=== PATIENT | female | born 1985 | race Hispanic/Latino ===

== ENCOUNTER 2017-03-08 00:05 | Emergency (ER) | payer SELFPAY ==
[2017-03-08 00:27] LABS: Bilirubin Negative (Negative); Blood, Urine Moderate (Negative); Clarity TURBID (Clear); Glucose, Urine (Dipstick) >=1000 mg/dL (Negative); Leukocyte Negative (Negative); Nitrite Negative (Negative); Protein, Urine (Dipstick) Negative (Neg-Trace); Specific Gravity, Urine 1.036 (1.002-1.036); Urobilinogen 0.2 mg/dL (0.2-1.0)
[2017-03-08 00:30] LABS: Bacteria/HPF Rare-Few HPF (None Seen); Hyaline Casts/LPF 0-3 HYALINE CAST LPF (0-3 Hyaline); Pathc Cast-AUWi Flag 0.27 (0-2.49); RBC/HPF 21-50 HPF (0-3); Squamous Epithelial 0-3 HPF (0-3); WBC/HPF 0-3 HPF (0-3)
[2017-03-08 00:39] LABS: #Eosinphils 0.1 thou/uL (0.0-0.7); #Lymphocytes 2.3 thou/uL (1.20-3.40); #Monocytes 0.5 thou/uL (0.11-0.59); #Neutrophils 7.1 thou/uL (1.40-6.50); %Basophils 0.4 % (0.0-1.0); %Eosinophils 1.1 % (0.0-10.0); %Monocytes 4.7 % (0.0-10.0); %Neutrophils 70.9 % (42.0-75.0); Hemoglobin 14.6 g/dL (12.0-16.0); Mean Corpuscular HGB CONC 33.2 g/dL (32.0-36.0); Mean Corpuscular Hemoglobin 28.3 pg (27.0-31.0); Mean Corpuscular Volume 85.1 fl (81.0-99.0); Platelet Count 142 thou/uL (130-400); RBC Distribution Width 11.9 % (11.5-14.5); Red Blood Cell (RBC) Count 5.18 mill/uL (4.20-5.40)
[2017-03-08 00:46] LABS: Pregnancy Test - Urine (BHCG) Negative (Negative); Pregu Control Background? CLEAR/WHITE (CLR/WHITE); Pregu Control Bar Appear? YES (CONTROL BAR); Specific Gravity 1.036 (1.002-1.036)
[2017-03-08 01:06] LABS: ALT (SGPT) 29 U/L (8-55); AST (SGOT) 20 U/L (5-34); Albumin 4.2 g/dL (3.5-5.0); Alkaline Phosphatase 130 U/L (40-150); Anion Gap 15 mmol/L (10-20); BUN (Urea Nitrogen) 11 mg/dL (7.0-18.7); Bilirubin, Total 0.6 mg/dL (0.2-1.2); Calc. Creatinine Clearance 0 mL/min (70-130); Carbon Dioxide 23 mmol/L (22-29); Chloride 98 mmol/L (98-107); Estimated GFR-MDRD 84; Globulin 3.1 g/dL (2.4-3.5); Glucose 341 mg/dL (70-105); Potassium 3.6 mmol/L (3.5-5.1); Protein, Total 7.3 g/dL (6.0-8.3); Sodium 132 mmol/L (136-145)
[2017-03-08] MEDS ORDERED: Ondansetron HCl/PF 4 MG/2 ML Vial ONE (02:27)
[2017-03-08] MEDS ORDERED: Ketorolac Tromethamine 30 MG/ML VIAL ONE (02:27)
--- NOTE | 2017-03-08 13:57 | CT ---
PRELIMINARY REPORT/[facility]/EMERGENCY AFTER HOURS PROCEDURE: EXAM: CT Abdomen and Pelvis Without Intravenous Contrast EXAM DATE/TIME: Exam ordered 03/08/2017 2:16 AM CLINICAL HISTORY: 31 years old, female; Pain; Abdominal pain; Flank; Left; Prior surgery; Patient HX: 31 yo f presents to ed C/O abdominal pain. Pt reports pain started today in l flank and radiates to abdomen. Denies fe jocelyn. Reports chills and nausea. Denies vomiting, diarrhea, or constipation. Pt states this has never happened before, no h/o kidney stones. Reports h/o tubal. Denies dysuria. Reports hematuria because p t is currently on menstrual cycle, started on . TECHNIQUE: Axial computed tomography images of the abdomen and pelvis without intravenous contrast. Coronal reformatted images were created and reviewed. COMPARISON: No relevant prior studies available. FINDINGS: Lower thorax: No acute findings. ABDOMEN: Liver: Unremarkable. Gallbladder and bile ducts: Unremarkable. No calcified stones. No ductal dilation. Pancreas: Unremarkable. No ductal dilation. Spleen: Unremarkable. No splenomegaly. Adrenals: Unremarkable. No mass. Kidneys and ureters: Unremarkable. No obstructing stones. No hydronephrosis. Stomach and bowel: Unremarkable. No obstruction. No mucosal thickening. Appendix: Normal appendix. PELVIS: Bladder: Unremarkable. No stones. Reproductive: 19 cm intermediate density in the septated cystic ovarian mass lesion which could be ar ising from either of the ovaries, extending into the lower abdomen. ABDOMEN and PELVIS: Intraperitoneal space: Unremarkable. No free air. No significant fluid collection. Bones/joints: No acute fracture. No dislocation. Soft tissues: Unremarkable. Vasculature: Unremarkable. No abdominal aortic aneurysm. Lymph nodes: Unremarkable. No enlarged lymph nodes. IMPRESSION: 19 cm intermediate density in the septated cystic ovarian mass lesion which could be arising from eit her of the ovaries, extending into the lower abdomen. This could be benign or malignant. Recommend gynecology referral. Thank you for allowing us to participate in the care of your patient. Dictated and Authenticated by: Pedro Lam MD 03/08/2017 2:29 AM Central Time ([place] & [place]) FINAL REPORT EMERGENCY AFTER HOURS NONCONTRAST ABDOMEN AND PELVIC CT SCAN: Date: 03/08/17 Time: 0219 hours FINDINGS/IMPRESSION: Approximately 19.0 cm diameter low to intermediate density septated cystic ovarian mass in the midlin e. Normal appearing appendix. No renal calculus or obstruction. IMPRESSION: Large septated ovarian mass suspicious for ovarian neoplasm. Recommend gynecological evaluation. Report in agreement with preliminary report given on-call by [facility]. POS: [facility]
--- NOTE | 2017-03-08 14:01 | ULT ---
PRELIMINARY REPORT/[facility]/EMERGENCY AFTER HOURS PROCEDURE: EXAM: US Pelvis Complete EXAM DATE/TIME: Exam ordered 03/08/2017 3:12 AM CLINICAL HISTORY: 31 years old, female; Pain; Other: Lt flank, llq pain; Patient HX: See [facility] CT report TECHNIQUE: Real-time pelvic ultrasound (complete) with image documentation. COMPARISON: CT Stone Protocol 2017-03-08 02:16 FINDINGS: Uterus/cervix: Unremarkable. Normal endometrial stripe thickness. No myometrial mass. Right ovary: Unremarkable. No mass. Normal blood flow. Left ovary: 16.6 cm cystic left ovarian lesion. There is solid tissue with internal Doppler signal at the inferior aspect of this lesion which may be normal left ovary or potentially malignant solid com ponent of the cystic lesion. Normal blood flow. Free fluid: No free fluid. IMPRESSION: 16.6 cm cystic left ovarian lesion. There is solid tissue with internal Doppler signal at the inferio r aspect of this lesion which may be normal left ovary or potentially malignant solid component of th e cystic lesion. Recommend gynecology referral. Thank you for allowing us to participate in the care of your patient. Dictated and Authenticated by: Pedro Lam MD 03/08/2017 4:19 AM Central Time ([place] & [place]) FINAL REPORT EMERGENCY AFTER HOURS PELVIC ULTRASOUND INCLUDING TRANSABDOMINAL AND VASCULAR DUPLEX WITH COLOR AND S PECTRAL DOPPLER IMAGING: Date: 03/08/17 Time: 0326 hours FINDINGS: There is an approximately 17.0 cm diameter left ovarian complex, mostly cystic mass, with some solid soft tissue with Doppler signal within the inferior aspect of the mass. Unremarkable right ovary. Unr emarkable uterus. IMPRESSION: Complex, mostly cystic mass, probably left ovarian origin with some solid tissue and some debris with in the cystic component of the mass, certainly worrisome for ovarian neoplasm. Gynecological follow-u p is recommended. Report in agreement with preliminary report given on-call by [facility]. POS: [facility]
== END 2017-03-08 04:53 | disposition home or self-care (01) ==
LOC: ERS 00:05
DX: N83.9 Noninflammatory disorder of ovary, fallopian tube and broad ligament, unspecified (principal)
CPT/HCPCS: 36415; 74176; 76856; 80053; 81003; 81015; 81025; 85025; 93976; 96361; 96374; 96375; J1885; J2405

== ENCOUNTER 2018-02-28 00:19 | Emergency (ER) | payer OTHER, SELFPAY ==
--- NOTE | 2018-02-28 08:46 | RAD ---
CHEST 1 VIEW: Date: 02/28/18 HISTORY: Cough. COMPARISON: None. FINDINGS: Lungs are clear. No pneumothorax or effusion. Cardiac silhouette and mediastinal contours within norm al limits. IMPRESSION: No acute intrathoracic abnormality. POS: [facility]
== END 2018-02-28 02:08 | disposition home or self-care (01) ==
LOC: ERS 00:19
DX: J06.9 Acute upper respiratory infection, unspecified (principal)
CPT/HCPCS: 71045; 87804

== ENCOUNTER 2019-05-01 14:41 | Inpatient (IN) | payer OTHER, SELFPAY ==
[~2019-05-01 14:41] MED LIST: Glycopyrrolate 0.2 MG/ML 5 ML SYRINGE ONE; Iopamidol-370 76% 500 ML 1 ML ONE; Lidocaine 1% PF 5 ML VIAL ONE; PROPOFOL 200 MG/20 ML VIAL ONE; Rocuronium Bromide 10 MG/ML (10ML VIAL) ONE; Succinylcholine Chloride 20 MG/ML 10 ml SYRINGE FS ONE
[2019-05-01] MEDS ORDERED: Vancomycin HCl 1.75 GM in Sodium Chloride 0.9% 500 ML IVPB SCH (15:45)
[2019-05-01 16:04] LABS: Hemoglobin 12.7 g/dL (12.0-16.0); Mean Corpuscular HGB CONC 33.3 g/dL (32.0-36.0); Mean Corpuscular Hemoglobin 26.8 pg (27.0-31.0); Mean Corpuscular Volume 80.4 fL (78.0-98.0); Mean Platelet Volume 12.7 fL (7.4-10.4); Platelet Count 127 thou/uL (130-400); RBC Distribution Width 13.6 % (11.5-14.5); Red Blood Cell (RBC) Count 4.73 mill/uL (4.20-5.40); White Blood Cell (WBC) Count 9.9 thou/uL (4.8-10.8)
[2019-05-01] MEDS ORDERED: Cefepime 2 GM VIAL ONE (16:05)
[2019-05-01] MEDS ORDERED: metroNIDAZOLE 500 MG/100 ML BAG ONE (16:07)
[2019-05-01] MEDS ORDERED: Morphine 4 MG/ML VIAL ONE (16:07)
[2019-05-01 16:18] LABS: ALT (SGPT) 9 U/L (8-55); AST (SGOT) 14 U/L (5-34); Albumin 3.3 g/dL (3.5-5.0); Alkaline Phosphatase 123 U/L (40-110); Anion Gap 15 mmol/L (10-20); BUN (Urea Nitrogen) 15 mg/dL (7.0-18.7); Bilirubin, Total 0.6 mg/dL (0.2-1.2); Calc. Creatinine Clearance 0 mL/min (70-130); Carbon Dioxide 23 mmol/L (22-29); Chloride 99 mmol/L (98-107); Estimated GFR-MDRD Greater than 90; Globulin 3.1 g/dL (2.4-3.5); Glucose 343 mg/dL (70-105); Potassium 3.7 mmol/L (3.5-5.1); Protein, Total 6.4 g/dL (6.0-8.3); Sodium 133 mmol/L (136-145)
--- NOTE | 2019-05-01 16:20 | PDOC.HHP ---
Hospitalist HPI - History of Present Illness pain/wound History of Present Illness: 33 yo with DM2 presnted to the ER for worsening genital rash. 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 Patient states this started as a "lump" on Thursday. She visited her PCP and was given an IM antibiotic then sent home with doxycycline and flagyl which she states she has been taking. Despite this the wound and rash worsened, starting to drain pus yesterday. Endorses fevers, chills. No other symptoms. No abd pain. Patient comfortable when we were talking in the room. ED Course: Given cefepime,flagyl and morhpine for pain She was started on Vancomycin Hospitalist ROS - Review of Systems Constitutional: reports: fever, chills Eyes: reports: pain. denies: vision change, eyelid inflammation ENT: denies: nose discharge, nose congestion Respiratory: denies: cough, shortness of breath, hemoptysis, SOB with excertion Cardiovascular: denies: chest pain, palpitations Gastrointestinal: denies: nausea, vomiting, abdominal pain, diarrhea Genitourinary: denies: dysuria, frequency Musculoskeletal: denies: neck pain, shoulder pain, arm pain Skin: reports: rash, lesions Neurological: denies: weakness, numbness, seizures Hospitalist History - Past Medical History Source: patient, family Cardiac: reports: no pertinent history Pulmonary: reports: no pertinent history SHIRT LINE OPERATOR: reports: no pertinent history Gastrointestinal: reports: no pertinent history Heme/Onc: reports: no pertinent history Hepatobiliary: reports: no pertinent history Psych: reports: no pertinent history Endocrine: reports: Diabetes - Past Surgical History Past Surgical History: reports: (x3) - Family History Family History: reports: no pertinent history - Social History Smoking Status: Never smoker Alcohol: reports: None Drugs: reports: none - Exam General Appearance: NAD, awake alert Eye: anicteric sclera. negative: scleral icterus ENT: normocephalic atraumatic, moist mucosa Neck: supple, symmetric, no JVD Heart - other findings: tachycardic Respiratory: normal chest expansion Respiratory - other findings: no acute respiratory distress Gastrointestinal: soft, non-tender Skin - other findings: left labial erythema, swelling, skin discoloration, pus pocket drain Neurological: cranial nerve grossly intact, normal sensation to touch Musculoskeletal: normal tone, normal strength Psychiatric: normal affect, normal behavior, A&O x 3, oriented to person, oriented to place, oriented to time Hospitalist Results - Labs Result Diagrams: 05/01/19 15:31 05/01/19 15:31 Lab results: WBC 9.9 thou/uL (4.8-10.8) 05/01/19 15:31 Hgb 12.7 g/dL (12.0-16.0) 05/01/19 15:31 Hct 38.0 % (36.0-47.0) 05/01/19 15:31 MCV 80.4 fL (78.0-98.0) 05/01/19 15:31 Plt Count 127 thou/uL (130-400) L 05/01/19 15:31 Lactic Acid 2.4 mmol/L (0.5-2.2) H 05/01/19 15:31 Hospitalist H&P A/P - Problem (1) 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 Sepsis 2/2 sunni's gangrene -Tachyardic, fever of 101F, s/p cefepime & flagyl. Will start empiric abx including Vanc/zosyn/Clinda for broad spectrum coverage including MRSA -Discussed proceeding to OR as this is surgical emergency to prevent further spread -Stat CT to assess extent of involvement -Blood cultures pending -Will obtain wound culture 2. DM2 -Will check A1c as this being uncontrolled is possible RF leading to current condition 3. Elevated lactic acid -IV fluids Discussed with Dr. Jordan Hidalgo Addendum - Attending - Attending Attestation Date/Time: 05/01/19 [id number] I personally evaluated the patient and discussed the management with Dr. Hdz. I agree with the History, Examination, Assessment and Plan documented above with any addition or exceptions noted below. Exam with marked edema, erythema encompassing entire left labia with 2 1-cm necrotic appearing lesions. Malodorous. CT shows Sunni's gangrene with enlarged lymph nodes. OR notified of need for stat I&D. Dr. Tee to assist, Dr. Booker on standby for general surgery input. Patient counseled on need for surgery, consents signed. Will proceed to OR for I&D.
[2019-05-01 16:24] LABS: Band 17 % (5-11); Large Platelets SLIGHT; Lymphocytes 8 % (21-51); MDiff Complete? YES; Monocytes 9 % (0-10); Neutrophil 65 % (42-75); Platelet Morphology Comment Appears Decreased; RBC Morphology Normal; Reactive Lymphocytes 1 % (0-10)
[2019-05-01 16:30] LABS: BHCG - Serum Negative (NEGATIVE); Pregs Control Background? CLEAR/WHITE (CLR/WHITE); Pregs Control Bar Appear? YES (CONTROL BAR)
--- NOTE | 2019-05-01 16:31 | CT ---
CT OF THE ABDOMEN AND PELVIS WITH IV CONTRAST INDICATION: Concern for perineal gangrenous infection; burning on urination COMPARISON: Noncontrast CT abdomen pelvis dated March 08, 2017 FINDINGS: ABDOMEN: Lung bases: Clear Liver: No focal lesion. Gallbladder: Normal appearing. Pancreas: Normal. Adrenal glands: Normal. Spleen: Normal. Kidneys and ureters: Stable small right renal cyst measuring 9 mm. No focal renal lesion of the left kidney. Vasculature: Normal. Lymph nodes:No lymphadenopathy. Free fluid in abdomen:No free fluid is evident. PELVIS: Small and large bowel: There is moderate amount retained stool within the colon. Small bowel is of no rmal caliber. Appendix:Normal Bladder: Normal. Rectal and perirectal soft tissues:Normal. Reproductive structures: Previously seen large left adnexal complex cystic lesion is decreased in siz e. There is now a 5 cm complex cystic lesion now in the left adnexa. There is peripherally enhancing cystic abnormality right adnexa measuring 2.9 cm. Free fluid in pelvis: No free fluid is evident. Lymphadenopathy pelvis: There are mildly prominent lymph nodes seen within the left inguinal region. The largest measures 1.5 cm. Osseous structures: No acute osseous abnormality. No destructive osteolytic or osteoblastic lesion i s identified. There is scattered degenerative and osteoarthritic changes. Soft tissues:There is a inflammatory reticulation with soft tissue gas involving the left mid leg be a mature as well as the left gluteal region extending into the left ischial anal fossa and up to the left inguinal external ring. IMPRESSION: 1. 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 There are enlarged lymph nodes of the left inguinal region which are likely reactive. Surgical consultation is recommended. 2. Mildly complex cystic abnormalities of the left and right adnexa. Follow-up pelvic ultrasound be h elpful for further characterization. The left complex cystic abnormality has significantly decreased in size from the comparison examination where previously it measured 16 cm and now measures 5 cm. The peripheral enhancing cystic abnormality of the right adnexa may reflect an involuting follicular cyst. 3. Small right renal cyst
[2019-05-01 16:34] LABS: Hemoglobin A1c 10.9 % (4.0-6.0)
[2019-05-01] MEDS ORDERED: Dextrose 5% in Water 1,000 ML IV PRN (16:38)
[2019-05-01] MEDS ORDERED: Dextrose 50% Abboject 50 ML SYRINGE SLOW IVP PRN (16:38)
--- NOTE | 2019-05-01 17:44 | PDOC.BPN ---
- Brief Progress Note Patient tachycardic in 120s but does not appear uncomfortable, pain medication helping with pain. Called OR to get timeline and was told it would be 1-1.5 hours before they could get us back. I requested a second room given her diagnosis but was told it couldn't be done at this time. Day surgery arrived to take patient down and I gave them my number to call as soon as ready to go to OR.
[2019-05-01] MEDS ORDERED: Fentanyl 100 MCG/2 ML VIAL ONE (18:31)
[2019-05-01] MEDS ORDERED: Midazolam HCl 2 mg/2 ml Vial ONE (18:33)
[2019-05-01] MEDS ORDERED: Promethazine HCl 25 MG/ML VIAL IM PRN (19:59)
[2019-05-01] MEDS ORDERED: Meperidine HCl/PF 25 MG/ML VIAL SLOW IVP PRN (19:59)
[2019-05-01] MEDS ORDERED: Promethazine HCl 25 MG/ML VIAL SLOW IVP PRN (19:59)
[2019-05-01] MEDS ORDERED: HYDROmorphone 2 MG/ML VIAL SLOW IVP PRN (19:59)
[2019-05-01] MEDS ORDERED: Calcium Carbonate 500 MG ChewTAB PO PRN (20:37)
[2019-05-01] MEDS ORDERED: Ondansetron ODT 4 MG TAB PO PRN (20:37)
[2019-05-01] MEDS ORDERED: Ondansetron PF 4 MG/2 ML Vial IVP PRN (20:37)
[2019-05-01] MEDS ORDERED: Bisacodyl 5 MG TAB PO PRN (20:37)
[2019-05-01] MEDS ORDERED: HYDROcodone/Acetaminophen 5/325 mg Tablet PO PRN (20:37)
[2019-05-01] MEDS ORDERED: Acetaminophen 500 MG TAB PO PRN (20:37)
[2019-05-01] MEDS ORDERED: Esmolol 100 MG/10 ML VIAL ONE (21:00)
[2019-05-01] MEDS ORDERED: Metoprolol Tartrate 5 MG/5 ML VIAL ONE (21:24)
[2019-05-01] MEDS ORDERED: Morphine 2 MG/ML SYRINGE SLOW IVP PRN (21:46)
[2019-05-01] MEDS: Sodium Chloride 0.9% 1,000 ML IV SCH (22:27)
[2019-05-01] MEDS: Clindamycin/D5W 900 MG in Premix Bag 1 BAG IVPB SCH (22:28)
[2019-05-01] MEDS: Piperacillin/Tazobactam 4.5 GM in Sodium Chloride 0.9% 100 ML IVPB SCH ×2 (22:28→23:41)
[2019-05-01 22:48] VITALS: BMI 32.9
--- NOTE | 2019-05-02 00:26 | OP ---
DATE OF PROCEDURE: 05/01/2019 PREOPERATIVE DIAGNOSIS: Ildefonso's gangrene of the left labia. POSTOPERATIVE DIAGNOSIS: Ildefonso's gangrene of the left labia. PROCEDURE PERFORMED: Incision and drainage with wound debridement. DIRECTOR OF REGULATORY AFFAIRS: Kellen Tee MD. ANESTHESIA: General endotracheal. COMPLICATIONS: None. ESTIMATED BLOOD LOSS: 800 mL. FINDINGS: Necrotizing fasciitis with an extensive involvement including the left labia 4 cm superior to the pubic bone and posteriorly deep to the ischial tuberosity laterally to the groin fold and inferiorly along the introitus and down to the anus. DETAILS OF PROCEDURE: The patient was taken to the operating room where general anesthesia was obtained without difficulty. She was prepared and draped in normal sterile fashion in the dorsal lithotomy position with the Yellofins leg holders. A Ruiz catheter was placed in the bladder. The patient was examined and the above findings were noted. The necrotic tissue was sharply dissected and removed until viable tissue was noted throughout. It was copiously irrigated and cautery was used for hemostasis. Dr. Booker evaluated and no need for his involvement at this time. The wound was packed with Kerlix soaked in Betadine and saline. The patient tolerated the procedure well. Sponge, lap, and needle counts were correct x2. The patient was taken to recovery room in stable condition. Job ID: [id number] [facility]
[2019-05-02] MEDS: Vancomycin 1.5 GRAM/300 ML BAG 1.5 GM in Premix Bag 1 BAG IVPB SCH ×2 (00:30→08:35)
[2019-05-02] MEDS: Clindamycin/D5W 900 MG in Premix Bag 1 BAG IVPB SCH ×3 (00:32→16:41)
[2019-05-02] MEDS: HumaLOG 300 UNITS/3 ML VIAL SC PRN ×4 (05:59→21:23)
[2019-05-02] MEDS: Piperacillin/Tazobactam 4.5 GM in Sodium Chloride 0.9% 100 ML IVPB SCH ×4 (05:59→21:20)
[2019-05-02] MEDS: Sodium Chloride 0.9% 1,000 ML IV SCH ×3 (06:00→21:20)
[2019-05-02 06:01] LABS: Band 12 % (5-11); Hemoglobin 8.8 g/dL (12.0-16.0); Hypochromia SLIGHT = 6-15 cells (100X) (0-5/hpf); Lymphocytes 8 % (21-51); MDiff Complete? YES; Mean Corpuscular HGB CONC 33.3 g/dL (32.0-36.0); Mean Corpuscular Hemoglobin 27.3 pg (27.0-31.0); Mean Platelet Volume 12.5 fL (7.4-10.4); Monocytes 6 % (0-10); Neutrophil 74 % (42-75); Platelet Count 135 thou/uL (130-400); Platelet Morphology Comment Appears Adequate; RBC Distribution Width 13.5 % (11.5-14.5); Red Blood Cell (RBC) Count 3.22 mill/uL (4.20-5.40); White Blood Cell (WBC) Count 9.7 thou/uL (4.8-10.8)
[2019-05-02 06:16] LABS: ALT (SGPT) Less than 7 U/L (8-55); AST (SGOT) 11 U/L (5-34); Albumin 2.3 g/dL (3.5-5.0); Alkaline Phosphatase 70 U/L (40-110); Anion Gap 14 mmol/L (10-20); BUN (Urea Nitrogen) 8 mg/dL (7.0-18.7); Bilirubin, Total 0.4 mg/dL (0.2-1.2); Calc. Creatinine Clearance 197 mL/min (70-130); Calcium 6.6 mg/dL (7.8-10.44); Carbon Dioxide 15 mmol/L (22-29); Chloride 105 mmol/L (98-107); Estimated GFR-MDRD Greater than 90; Globulin 2.2 g/dL (2.4-3.5); Glucose 260 mg/dL (70-105); Potassium 3.8 mmol/L (3.5-5.1); Protein, Total 4.5 g/dL (6.0-8.3); Sodium 130 mmol/L (136-145)
--- NOTE | 2019-05-02 07:55 | PDOC.BPN ---
- Brief Progress Note S: Patient reports doing well overnight. Denies any pain complaints or other concerns. O: Vital Signs - Most Recent Temp Pulse Resp BP Pulse Ox 98.7 F 105 H 16 95/66 100 05/02/19 04:00 05/02/19 04:00 05/02/19 04:00 05/02/19 04:00 05/02/19 04:00 Gen - AAO, NAD Abd - soft, NTTP - wound dressing clean, dry, intact. No significant erythema/edema surrounding wound Laboratory Last Values WBC 9.7 thou/uL (4.8-10.8) 05/02/19 05:05 RBC 3.22 mill/uL (4.20-5.40) L 05/02/19 05:05 Hgb 8.8 g/dL (12.0-16.0) L 05/02/19 05:05 Hct 26.4 % (36.0-47.0) L 05/02/19 05:05 MCV 82.0 fL (78.0-98.0) 05/02/19 05:05 MCH 27.3 pg (27.0-31.0) 05/02/19 05:05 MCHC 33.3 g/dL (32.0-36.0) 05/02/19 05:05 RDW 13.5 % (11.5-14.5) 05/02/19 05:05 Plt Count 135 thou/uL (130-400) 05/02/19 05:05 MPV 12.5 fL (7.4-10.4) H 05/02/19 05:05 Neutrophils % (Manual) 74 % (42-75) 05/02/19 05:05 Band Neuts % (Manual) 12 % (5-11) H 05/02/19 05:05 Lymphocytes % (Manual) 8 % (21-51) L 05/02/19 05:05 Reactive Lymphs % 1 % (0-10) 05/01/19 15:31 Monocytes % (Manual) 6 % (0-10) 05/02/19 05:05 Neutrophils # Not Reportable 05/01/19 15:31 Lymphocytes # Not Reportable 05/01/19 15:31 Hypochromia SLIGHT = 6-15 cells (100X) (0-5/hpf) 05/02/19 05:05 Large Platelets SLIGHT 05/01/19 15:31 Plt Morphology Comment Appears Adequate 05/02/19 05:05 RBC Morph Comment Normal 05/01/19 15:31 Sodium 130 mmol/L (136-145) L 05/02/19 05:05 Potassium 3.8 mmol/L (3.5-5.1) 05/02/19 05:05 Chloride 105 mmol/L (98-107) 05/02/19 05:05 Carbon Dioxide 15 mmol/L (22-29) L 05/02/19 05:05 Anion Gap 14 mmol/L (10-20) 05/02/19 05:05 BUN 8 mg/dL (7.0-18.7) 05/02/19 05:05 Creatinine 0.57 mg/dL (0.6-1.1) L 05/02/19 05:05 Estimated GFR (MDRD) Greater than 90 05/02/19 05:05 Glucose 260 mg/dL (70-105) H 05/02/19 05:05 POC Glucose 272 mg/dL (70-110) H 05/02/19 05:34 Hemoglobin A1c 10.9 % (4.0-6.0) H 05/01/19 15:31 Lactic Acid 1.9 mmol/L (0.5-2.2) 05/01/19 22:32 Calcium 6.6 mg/dL (7.8-10.44) L 05/02/19 05:05 Total Bilirubin 0.4 mg/dL (0.2-1.2) 05/02/19 05:05 AST 11 U/L (5-34) 05/02/19 05:05 ALT Less than 7 U/L (8-55) L 05/02/19 05:05 Alkaline Phosphatase 70 U/L (40-110) 05/02/19 05:05 Serum Total Protein 4.5 g/dL (6.0-8.3) L 05/02/19 05:05 Albumin 2.3 g/dL (3.5-5.0) L 05/02/19 05:05 Globulin 2.2 g/dL (2.4-3.5) L 05/02/19 05:05 Albumin/Globulin Ratio 1.0 g/dL (1.2-2.2) L 05/02/19 05:05 Serum , Qual Negative (NEGATIVE) 05/01/19 15:31 Blood Type O POSITIVE 05/01/19 21:33 Antibody Screen NEGATIVE 05/01/19 19:45 Crossmatch See Detail 05/01/19 19:45 A/P: 33 y/o s/p debridement for Ildefonso's gangrene and sepsis. Clinically doing well, surprisingly no pain despite extensive debridement. No fevers overnight but still tachycardic. Bands and lactic acid improved. Wound care consulted for evaluation and treatment of wound. Request the wound care team to call [phone] when evaluating the patient for OB Hospitalist cotton machine operator to evaluate wound when dressing is removed for any further surgical need. Blood sugars markedly elevated overnight, will consult hospitalist team for blood sugar control. Discussed procedure and expectations with the patient via [employer] and all questions were answered. Continue to monitor.
[2019-05-02] MEDS ORDERED: Vancomycin 1.5 GRAM/300 ML BAG 1.5 GM in Premix Bag 1 BAG IVPB SCH (08:00)
[2019-05-02] MEDS: Morphine 4 MG/ML VIAL SLOW IVP PRN (10:13)
--- NOTE | 2019-05-02 10:55 | PRG ---
DATE OF SERVICE: 05/02/2019 TIME OF SERVICE: 1020 hours. SUBJECTIVE: The patient is undergoing wound care dressing at this time. OBJECTIVE: VITAL SIGNS: Temperature 98.3, pulse 113, respirations 16, pulse ox 99%, blood pressure 101/69. GENERAL: She is resting comfortably, reporting minimal pain. SKIN: Wet-to-dry dressing was removed by Wound Care. The wound was inspected by myself. Areas of cautery artifact are noted inside. However, no area of definitive wound further necrotizing fasciitis was noted or necrosis. There was nothing clinically indicated a need for return to OR for further debridement. The area of subcutaneous fat in the wound was probed and no loss of resistance was noted and no significant odor was noted from the wound as well. DIAGNOSTIC STUDIES: Microbiology cultures are pending. LABORATORY DATA: The patient's hematocrit this morning is 26.4. Sodium was 130 and glucose was 260. IMPRESSION: Diabetes mellitus, poorly controlled with necrotizing fasciitis of the left labia, buttock, and groin. PLAN: 1. Continue clindamycin, Zosyn, and vancomycin. 2. Continue Internal Medicine consultation for management of poorly controlled diabetes. 3. Wound care, applying wound VAC with Thursday, Thursday, Thursday dressing changes. Would change dressing on a more frequent basis if clinical indication of worsening infection or need to return to OR as noted, preference would be for hyperbaric oxygen; however, [facility] does not provide the service for inpatients at this time. Job ID: [id number] [facility]
[2019-05-02 15:16] LABS: Vancomycin, Trough 12.9 ug/mL
[2019-05-02] MEDS: Vancomycin HCl 1.75 GM in Sodium Chloride 0.9% 500 ML IVPB SCH ×2 (18:05→23:02)
--- NOTE | 2019-05-02 18:07 | PDOC.HHP ---
Hospitalist HPI - History of Present Illness Pain and swelling in the groin History of Present Illness: Pleasant 33-year-old female with past medical history of uncontrolled diabetes mellitus presents with pain and swelling in the vaginally area. 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 Patient was admitted to the critical-care team and surgery was consulted. Patient went to the operating room on 05/01/2019, by Dr Hidalgo, with Dr Booker on stand by - please see for operative report for details. Incision and drainage was performed without complications. Patient started on broad-spectrum antibiotics and intraoperative cultures were obtained. Surprisingly the patient had few systemic the symptoms including normal WBC count and afebrile, this is likely secondary to immunocompromised state from her uncontrolled diabetes mellitus with hemoglobin A1c of greater than 10. Internal medicine consultation request on 05/02/2019 for assistance in medical management. I find the patient on the surgical unit she is sitting up in bed in no apparent distress. The patient is breathing comfortably on room air. She is surrounded by her family and loved ones. She states that she is feeling much better and she has a good appetite. Patient denies pain, though she is obviously wincing with repositioning in the bed. Patient also complaining of minimal swelling in the limbs after she has had IV fluid resuscitation. Time was given for questions, all answered in detail. Hospitalist ROS - Review of Systems All other systems reviewed; all pertinent +/- noted in HPI/Subj - Medication Medications: Active Medications Generic Name Dose Route Start Last Admin Trade Name Freq PRN Reason Stop Dose Admin Bisacodyl 10 mg 05/01/19 20:37 05/02/19 16:38 Dulcolax PO 10 mg DAILYPRN PRN Administration Constipation Piperacillin Sod/Tazobactam 100 mls @ 200 mls/hr 05/01/19 18:00 05/02/19 12: 11 Sod 4.5 gm/ Sodium Chloride IVPB 100 mls Q6HR BRIT Administration Clindamycin Phosphate/Dextrose 50 mls @ 50 mls/hr 05/01/19 17:00 05/02/19 16: 41 900 mg/ Device IVPB 50 mls 0100,0900,1700 BRIT Administration Sodium Chloride 1,000 mls @ 125 mls/hr 05/01/19 20:45 05/02/19 14:28 Normal Saline 0.9% IV Not Given .Q8H BRIT Morphine Sulfate 4 mg 05/01/19 21:46 05/02/19 10:13 Morphine SLOW IVP 4 mg Q4H PRN Administration Severe Pain (7-10) Hospitalist History - Past Medical History Source: patient, family, old records Cardiac: reports: HTN, Hyperlipidemia Pulmonary: reports: no pertinent history PRETZEL PACKER: reports: no pertinent history Gastrointestinal: reports: no pertinent history Heme/Onc: reports: no pertinent history Hepatobiliary: reports: no pertinent history Psych: reports: no pertinent history Endocrine: reports: Diabetes - Past Surgical History Past Surgical History: reports: (x3) - Family History Family History: reports: no pertinent history - Social History Smoking Status: Never smoker Alcohol: reports: None Drugs: reports: none Living Situation: With Family Domestic Violence: Negative Activity level: independent ambulation - Exam General Appearance: NAD, awake alert Eye: anicteric sclera ENT: normocephalic atraumatic, moist mucosa Neck: supple, symmetric, no lymphadenopathy Heart: RRR, no murmur, no gallops, no rubs Respiratory: CTAB, no wheezes, no rales, no ronchi, normal chest expansion Gastrointestinal: soft, non-tender, non-distended, no guarding, no rigidity Gastrointestinal - other findings: Patient declined pelvic exam Extremities: no edema Extremities - other findings: +1 UE edema Skin: no rashes Neurological: cranial nerve grossly intact, no focal deficits Musculoskeletal: normal tone, normal strength Psychiatric: normal affect, normal behavior, A&O x 3 Hospitalist Results - Labs Result Diagrams: 05/02/19 05:05 05/02/19 05:05 Lab results: WBC 9.7 thou/uL (4.8-10.8) 05/02/19 05:05 Hgb 8.8 g/dL (12.0-16.0) L 05/02/19 05:05 Hct 26.4 % (36.0-47.0) L 05/02/19 05:05 MCV 82.0 fL (78.0-98.0) 05/02/19 05:05 Plt Count 135 thou/uL (130-400) 05/02/19 05:05 Band Neuts % (Manual) 12 % (5-11) H 05/02/19 05:05 Sodium 130 mmol/L (136-145) L 05/02/19 05:05 Potassium 3.8 mmol/L (3.5-5.1) 05/02/19 05:05 Chloride 105 mmol/L (98-107) 05/02/19 05:05 Carbon Dioxide 15 mmol/L (22-29) L 05/02/19 05:05 BUN 8 mg/dL (7.0-18.7) 05/02/19 05:05 Creatinine 0.57 mg/dL (0.6-1.1) L 05/02/19 05:05 Glucose 260 mg/dL (70-105) H 05/02/19 05:05 Lactic Acid 1.9 mmol/L (0.5-2.2) 05/01/19 22:32 Calcium 6.6 mg/dL (7.8-10.44) L 05/02/19 05:05 Total Bilirubin 0.4 mg/dL (0.2-1.2) 05/02/19 05:05 AST 11 U/L (5-34) 05/02/19 05:05 ALT Less than 7 U/L (8-55) L 05/02/19 05:05 Alkaline Phosphatase 70 U/L (40-110) 05/02/19 05:05 Serum Total Protein 4.5 g/dL (6.0-8.3) L 05/02/19 05:05 Albumin 2.3 g/dL (3.5-5.0) L 05/02/19 05:05 - Radiology Interpretation CT scan - abdomen Status: image reviewed by ms Hospitalist H&P A/P - Problem (1) 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 Code(s): N76.89 - OTHER SPECIFIED INFLAMMATION OF VAGINA AND VULVA Status: Acute (2) Diabetes Code(s): E11.9 - TYPE 2 DIABETES MELLITUS WITHOUT COMPLICATIONS Status: Acute (3) SIRS (systemic inflammatory response syndrome) Code(s): R65.10 - SIRS OF NON-INFECTIOUS ORIGIN W/O ACUTE ORGAN DYSFUNCTION Status: Acute (4) Sepsis Code(s): A41.9 - SEPSIS, UNSPECIFIED ORGANISM Status: Acute - Plan Plan: Plan: medical/surgical unit surgery consultation, recommendations appreciated infectious disease consultation, recommendations appreciated critical-care consultation, recommendations appreciated status post incision and drainage on 05/01/2019 please see full operative report for details Post operative care broad-spectrum antibiotics, de-escalate to intraoperative cultures as able start long-acting insulin for glucose control increase sliding-scale to moderate A1C greater than 10 patient will need to be started on EZIO inhibitor and statin therapy on discharge , we will hold at this time to avoid renal toxicity with broad-spectrum antibiotics blood pressure control GI prophylaxis DVT prophylaxis
[2019-05-02] MEDS ORDERED: FLU VACC QS2019-20(6MOS UP)/PF 60 MCG/0.5 ML SYRINGE IM ONE (21:00)
[2019-05-02] MEDS: Insulin Glargine 8 UNITS in Pre-Filled Syringe SC SCH (21:20)
[2019-05-03] MEDS: Clindamycin/D5W 900 MG in Premix Bag 1 BAG IVPB SCH ×3 (01:39→17:53)
[2019-05-03] MEDS: Piperacillin/Tazobactam 4.5 GM in Sodium Chloride 0.9% 100 ML IVPB SCH ×3 (03:21→15:20)
[2019-05-03 05:02] LABS: #Eosinphils 0.1 thou/uL (0.0-0.7); #Lymphocytes 1.3 thou/uL (1.20-3.40); #Monocytes 0.7 thou/uL (0.11-0.59); #Neutrophils 3.1 thou/uL (1.40-6.50); %Basophils 0.5 % (0.0-1.0); %Eosinophils 2.7 % (0.0-10.0); %Lymphocytes 24.9 % (21.0-51.0); %Monocytes 12.5 % (0.0-10.0); %Neutrophils 59.3 % (42.0-75.0); Hemoglobin 7.1 g/dL (12.0-16.0); Mean Corpuscular Hemoglobin 26.8 pg (27.0-31.0); Mean Corpuscular Volume 81.3 fL (78.0-98.0); Mean Platelet Volume 10.9 fL (7.4-10.4); Platelet Count 130 thou/uL (130-400); RBC Distribution Width 13.7 % (11.5-14.5); Red Blood Cell (RBC) Count 2.65 mill/uL (4.20-5.40); White Blood Cell (WBC) Count 5.3 thou/uL (4.8-10.8)
[2019-05-03 05:26] LABS: Anion Gap 9 mmol/L (10-20); BUN (Urea Nitrogen) 6 mg/dL (7.0-18.7); Calc. Creatinine Clearance 201 mL/min (70-130); Calcium 6.3 mg/dL (7.8-10.44); Carbon Dioxide 21 mmol/L (22-29); Chloride 107 mmol/L (98-107); Estimated GFR-MDRD Greater than 90; Glucose 247 mg/dL (70-105); Sodium 134 mmol/L (136-145)
[2019-05-03 05:28] LABS: Potassium 2.8 mmol/L (3.5-5.1)
[2019-05-03] MEDS: Sodium Chloride 0.9% 1,000 ML IV SCH ×3 (05:37→21:02)
[2019-05-03] MEDS: Potassium Chloride 20 MEQ TAB PO SCH ×2 (05:42→12:13)
[2019-05-03] MEDS: HumaLOG 300 UNITS/3 ML VIAL SC PRN ×4 (05:43→21:03)
--- NOTE | 2019-05-03 07:29 | PRG ---
DATE OF SERVICE: 05/03/2019 TIME OF SERVICE: 0650 hours. The patient is postoperative day #1 to 2 now, status post wide local excision and debridement of necrotizing fasciitis, Ildefonso's gangrene of the left labia with poorly controlled diabetes mellitus. Internal Medicine Hospital Service has been consulted for management of the patient's diabetes. She continues on clindamycin, Zosyn, and vancomycin. Microbiology: Bacterial cultures are still pending. Gram stain revealed moderate WBCs, many gram-positive cocci in clusters and many gram-negative rods. LABORATORY DATA: This morning reveals hematocrit is 21.5, down from 26.4 yesterday morning. White count remains thrombocytopenic at 5.3. Of note, the patient was typed and crossed, but transfused her 1 unit of PRBCs preoperatively. Blood sugar this morning was 264. Mild hyponatremia improving at 134, hypokalemia at 2.8 and a creatinine of 0.56. PHYSICAL EXAMINATION: VITAL SIGNS: The patient is resting comfortably, temperature is 97.9, pulse 93, respirations 16, blood pressure 102/66. ABDOMEN: Soft and nontender. Wound VAC is in place with minimal fluid recovery , which seems to be holding a good vacuum. Looking through the occlusive dressing , there is no evidence of a gross necrotizing tissue. Ruiz catheter is in place with good urine output. IMPRESSION: 1. Necrotizing fasciitis. 2. Ildefonso's gangrene of the left labia, poorly-controlled diabetes with concomitant anemia. 3. Hyponatremia. 4. Hypokalemia. PLAN: Continue antibiotics as prescribed. Reinspected the base of the wound at next dressing change, which with wound VAC will be on Thursday, 05/03 in consideration for possible return to the OR for further debridement. Await wound cultures and defer to Internal Medicine for management of glycemic control and metabolic abnormalities. Transfuse [address] for anemia[address] Spring Hidalgo is [facility] Hospitalist taking over at 0800 today Job ID: [id number] [facility]
[2019-05-03] MEDS: Vancomycin HCl 1.75 GM in Sodium Chloride 0.9% 500 ML IVPB SCH ×3 (08:57→19:38)
[2019-05-03] MEDS: Insulin Glargine 8 UNITS in Pre-Filled Syringe SC SCH (10:23)
--- NOTE | 2019-05-03 12:37 | PDOC.HOSPP ---
- Subjective Encounter Date: 05/03/19 Encounter Time: 12:35 Subjective: Patient in bed, no pain, no chest pain or shortness of breath, denies complaints at this time. - Objective Vital Signs & Weight: Vital Signs (12 hours) Temp Pulse Pulse Resp BP BP Pulse Ox 05/03/19 11:00 98.3 F 89 14 103/71 98 05/03/19 10:20 98.4 F 88 16 103/70 99 05/03/19 07:27 98.4 F 87 14 97/67 99 05/03/19 07:07 98.2 F 89 14 103/70 98 05/03/19 03:16 97.9 F 93 16 102/66 99 Weight Weight 198 lb I&O: 05/02/19 05/03/19 05/04/19 06:59 06:59 06:59 Intake Total 4745 350 Output Total 3450 Balance 1295 350 Result Diagrams: 05/03/19 04:47 05/03/19 04:47 Additional Labs: Accuchecks 05/03/19 05/02/19 05:32 15:48 POC Glucose 264 H 285 H Hospitalist ROS - Medication Medications: Active Medications Generic Name Dose Route Start Last Admin Trade Name Freq PRN Reason Stop Dose Admin Bisacodyl 10 mg 05/01/19 20:37 05/02/19 16:38 Dulcolax PO 10 mg DAILYPRN PRN Administration Constipation Clindamycin Phosphate/Dextrose 50 mls @ 50 mls/hr 05/01/19 17:00 05/03/19 10: 26 900 mg/ Device IVPB 50 mls 0100,0900,1700 BRIT Administration Sodium Chloride 1,000 mls @ 125 mls/hr 05/01/19 20:45 05/03/19 05:37 Normal Saline 0.9% IV Not Given .Q8H BRIT Vancomycin HCl 1.75 gm/ Sodium 500 mls @ 250 mls/hr 05/02/19 16:00 05/03/19 08:57 Chloride IVPB 500 mls 0800,1600,2359 BRIT Administration Insulin Glargine 8 units/ 0.08 mls @ 0 mls/hr 05/02/19 21:00 05/03/19 10:23 Miscellaneous Medication SC 0.08 mls BID BRIT Administration Piperacillin Sod/Tazobactam 100 mls @ 200 mls/hr 05/02/19 21:00 05/03/19 10: 25 Sod 4.5 gm/ Sodium Chloride IVPB 100 mls 0300,0900,1500,2100 BRIT Administration Insulin Human Lispro 0 units 05/01/19 16:38 05/02/19 21:23 Humalog SC 4 unit .BEDTIME SLIDING SC PRN Administration Bedtime Correctional Scale Insulin Human Lispro 0 units 05/02/19 16:57 05/03/19 12:14 Humalog SC 6 unit .MODERATE SLIDING SC PRN Administration Moderate Correctional Scale Morphine Sulfate 4 mg 05/01/19 21:46 05/02/19 10:13 Morphine SLOW IVP 4 mg Q4H PRN Administration Severe Pain (7-10) Sodium Chloride 10 ml 05/03/19 09:00 05/03/19 09:04 Flush - Normal Saline IVF 10 ml Q12HR BRIT Administration - Exam General Appearance: NAD, awake alert Eye: PERRL, anicteric sclera ENT: normocephalic atraumatic, no oropharyngeal lesions, moist mucosa Neck: supple, symmetric, no JVD, no thyromegaly, no lymphadenopathy, no carotid bruit Heart: RRR, no murmur, no gallops, no rubs, normal peripheral pulses Respiratory: CTAB, no wheezes, no rales, no ronchi, normal chest expansion, no tachypnea, normal percussion Gastrointestinal: soft, non-tender, non-distended, normal bowel sounds, no palpable masses, no hepatomegaly, no splenomegaly, no bruit Extremities: no cyanosis, no clubbing, no edema Skin: normal turgor, no lesions, no rashes Neurological: cranial nerve grossly intact, normal sensation to touch, no weakness, no focal deficits, no new deficit Musculoskeletal: normal tone, normal strength, no muscle wasting Psychiatric: normal affect, normal behavior, A&O x 3 Hosp A/P - Plan medical/surgical unit surgery consultation, recommendations appreciated infectious disease consultation, recommendations appreciated critical-care consultation, recommendations appreciated status post incision and drainage on 05/01/2019 please see full operative report for details Post operative care broad-spectrum antibiotics, de-escalate to intraoperative cultures as able increase long-acting insulin for glucose control increase sliding-scale to moderate A1C greater than 10 patient will need to be started on EZIO inhibitor and statin therapy on discharge , we will hold at this time to avoid renal toxicity with broad-spectrum antibiotics blood pressure control GI prophylaxis DVT prophylaxis replace K as needed, trend BMP daily post op anemia - trend CBC and transfuse for hgb < 7 or per surgery recommendations
[2019-05-03 14:33] LABS: Potassium 3.2 mmol/L (3.5-5.1)
[2019-05-03 14:55] LABS: Vancomycin, Trough 19.7 ug/mL
--- NOTE | 2019-05-03 18:27 | CON ---
DATE OF CONSULTATION: 05/03/2019 REASON FOR CONSULTATION: Necrotizing fasciitis. HISTORY OF PRESENT ILLNESS: A 33-year-old, history of type 2 diabetes and previous perineal abscesses treated in the home setting, who now developed necrotizing fasciitis from the latest one. She had surgical debridement which was carried out on April 30. Microbiology is not yet fully worked up, but Gram stain shows polymicrobial aster. The patient is constipated and has good appetite. No respiratory symptoms. Started staying in bed, we would like to see if she can pick and walk. No headaches. No chest pain. No joint symptoms or skin disorder outside the area of involvement. PAST MEDICAL HISTORY: Type 2 diabetes and prior perineal abscesses. SURGICAL HISTORY: and tubal ligation. ALLERGIES: NONE. FAMILY HISTORY: Noncontributory except for diabetes. CURRENT MEDICATIONS: 1. Zosyn. 2. Vancomycin. 3. Clindamycin. 4. P.r.n. medications. 5. Insulin. PHYSICAL EXAMINATION: VITAL SIGNS: Temperature normal. Blood pressure 110/75, pulse 93, respirations 14, O2 saturation 98. SKIN: Exam shows the perineal area on the right side of the labium majora with the area of necrotizing fasciitis, status post surgical debridement. She has the urethra catheterized. Peripheral IV access, no lymphadenopathy. HEENT: Normal. NECK: Supple. LUNGS: Symmetric. Clear breath sounds. HEART: S1 and S2. Regular rate. No S3 or S4. ABDOMEN: Soft, not distended or tender. No ascites. No bladder distention. EXTREMITIES: No joint inflammatory activity. NEURO: Nonfocal including cognitive function. LABORATORY DATA: Potassium 2.8 and 3.2. Sodium 134, creatinine 0.56. Liver profile normal, alkaline phosphatase 123. CRP was 12 down to 8. Albumin is 2.3. White cell count is 9.9 and now 5.3. Platelets are up to 130, 70% bands, now 12 % bands. Microbiology has been discussed above. Influenza antigen negative. Pathology of surgical specimen dense acute on chronic inflammation consistent with necrotizing fascitis. IMAGING DATA: Abdomen and pelvis CT from April 30, Ildefonso gangrene left labia, left gluteal region, left external ring of inguinal canal, enlarged lymph nodes in the left inguinal region. ASSESSMENT: Type 2 diabetes, necrotizing fasciitis, perineal area, status post debridement with the usual polymicrobial aster. DISCUSSION: The patient will continue with the wound management and we will target the most common organisms which include gram-negative rods, anaerobes, Staphylococcus aureus. Discontinue clindamycin, switch to meropenem and continue vanc until final identification of the Staphylococcus aureus susceptibility, may need subsequent surgical revision and further debridement depending on clinical progress. Job ID: [id number] MTDD
[2019-05-03] MEDS: MEROPENEM 1 GM/50 ML 1 GM in Premix Bag 1 BAG IVPB SCH (21:00)
[2019-05-03] MEDS: Polyethylene Glycol 3350 17 GM Packet PO PRN (21:01)
[2019-05-03] MEDS: Insulin Glargine 12 UNITS in Pre-Filled Syringe SC SCH (21:01)
[2019-05-04] MEDS: Clindamycin/D5W 900 MG in Premix Bag 1 BAG IVPB SCH ×3 (02:44→17:35)
[2019-05-04] MEDS: HYDROcodone/Acetaminophen 5/325 mg Tablet PO PRN (02:49)
[2019-05-04] MEDS: HumaLOG 300 UNITS/3 ML VIAL SC PRN ×2 (04:26→17:38)
[2019-05-04] MEDS: Vancomycin HCl 1.75 GM in Sodium Chloride 0.9% 500 ML IVPB SCH (04:40)
[2019-05-04] MEDS: Sodium Chloride 0.9% 1,000 ML IV SCH ×3 (04:45→20:30)
[2019-05-04 06:02] LABS: Band 64 % (5-11); Eosinophils 6 % (0-10); Hemoglobin 8.4 g/dL (12.0-16.0); Hypochromia SLIGHT = 6-15 cells (100X) (0-5/hpf); MDiff Complete? YES; Mean Corpuscular HGB CONC 33.2 g/dL (32.0-36.0); Mean Corpuscular Hemoglobin 27.1 pg (27.0-31.0); Mean Corpuscular Volume 81.6 fL (78.0-98.0); Mean Platelet Volume 10.9 fL (7.4-10.4); Myelocyte 1 % (0-0); Platelet Count 158 thou/uL (130-400); Platelet Morphology Comment Appears Adequate; RBC Distribution Width 13.8 % (11.5-14.5); Reactive Lymphocytes 28 % (0-10); White Blood Cell (WBC) Count 5.7 thou/uL (4.8-10.8)
[2019-05-04] MEDS: MEROPENEM 1 GM/50 ML 1 GM in Premix Bag 1 BAG IVPB SCH ×3 (06:06→20:33)
[2019-05-04 06:15] LABS: Anion Gap 8 mmol/L (10-20); BUN (Urea Nitrogen) 4 mg/dL (7.0-18.7); Calc. Creatinine Clearance 212 mL/min (70-130); Calcium 6.4 mg/dL (7.8-10.44); Carbon Dioxide 21 mmol/L (22-29); Chloride 109 mmol/L (98-107); Estimated GFR-MDRD Greater than 90; Glucose 184 mg/dL (70-105); Magnesium 1.9 mg/dL (1.6-2.6); Sodium 135 mmol/L (136-145)
--- NOTE | 2019-05-04 07:46 | PDOC.BPN ---
- Brief Progress Note S: Pt complains only of pain in her IV site but otherwise is without complaints. Able to ambulate but has a ervin in place. NPO currently. O: Vital Signs - Most Recent Temp Pulse Resp BP Pulse Ox 98.1 F 84 14 109/73 97 05/04/19 07:37 05/04/19 07:37 05/04/19 07:37 05/04/19 07:37 05/04/19 07:37 Gen - AAO, NAD Chest - nonlabored - wound vac in place, no obvious areas of infection/necrosis around vac. Small amount of output. A/P: 33 y/o POD#3 from debridement for necrotizing fasciitis of left labia/ pelvis. Bands now up to 64% today but WBC count still only 5.7. Vitals stable. Wound vac scheduled for change today, request they call [phone] for concurrent OB hospitalist evaluation. On schedule as add on for OR today and NPO at this time in case further debridement is needed. Appreciate input for management of medical issues from Hospitalist team.
[2019-05-04] MEDS: Insulin Glargine 12 UNITS in Pre-Filled Syringe SC SCH ×2 (08:45→20:33)
[2019-05-04] MEDS ORDERED: Potassium Chloride 20 MEQ TAB PO SCH ×2 (09:30→17:00)
[2019-05-04] MEDS: Morphine 4 MG/ML VIAL SLOW IVP PRN (09:49)
[2019-05-04] MEDS ORDERED: Ondansetron PF 4 MG/2 ML Vial ONE (09:58)
[2019-05-04] MEDS ORDERED: Lidocaine 1% PF 5 ML VIAL ONE (09:58)
[2019-05-04] MEDS ORDERED: PROPOFOL 200 MG/20 ML VIAL ONE (09:58)
[2019-05-04] MEDS ORDERED: Fentanyl 100 MCG/2 ML VIAL ONE ×2 (10:09→14:06)
--- NOTE | 2019-05-04 10:26 | PDOC.EVN ---
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 Dusky appearing edges mainly lateral and posterior aspect noted. Decision to go to OR for subsequent debridement made for today.
[2019-05-04 10:48] LABS: Vancomycin, Trough 21.4 ug/mL
[2019-05-04] MEDS ORDERED: HYDROcodone/Acetaminophen 5/325 mg Tablet ONE (14:13)
[2019-05-04] MEDS: Vancomycin 1.5 GRAM/300 ML BAG 1.5 GM in Premix Bag 1 BAG IVPB SCH ×2 (15:04→19:00)
[2019-05-04] MEDS: Polyethylene Glycol 3350 17 GM Packet PO PRN (15:12)
--- NOTE | 2019-05-04 16:28 | OP ---
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 PROCEDURE PERFORMED: Surgical debridement and washout. ANESTHESIA: General endotracheal. PHILOSOPHY INSTRUCTOR SURGEON: Christin Alcantara DO. ESTIMATED BLOOD LOSS: 50 mL. IVF: 1 L of crystalloid. URINE OUTPUT: 450 mL of clear urine. FINDINGS: Left-sided vulvar and buttock wound, measuring 19 cm in length and 9 cm in width. Some dusky-appearing adipose tissue mainly in the posterior aspect of the wound. There was tracking on the anterior aspect of the wound towards the left inguinal canal and tracking posteriorly towards the anus, approximately 5 cm, and into the buttocks. There was excellent hemostasis. Following completion and the wound was packed with 2 Kerlix's soaked with Vashe. DESCRIPTION OF PROCEDURE: The patient was taken to the operating room where general anesthesia was obtained without difficulty. The patient was prepped and draped in a sterile fashion in the [facility]. The wound was evaluated. There were some indurated edges at the left most border of the wound as well as some dusky-appearing adipose tissue with the posterior most aspect. The left border of the wound was then incised with an 11 blade and the underlying subcutaneous tissue was removed with the Wheeler's scissors until healthy-appearing fat was present. There was a small amount of adipose that was removed from the anterior portion of the wound and this was healthy and bleeding at the conclusion. Following each of these excisions, hemostasis was achieved with cautery. The posterior most aspect of the wound was where the tunnel then tracked in towards the buttock towards the anus. This was thoroughly examined. General surgery was called in, Dr. Smith came in to look at the wound. He scrubbed in and evaluated everything and stated that no excision needed to be performed further and that everything looked good and he gave his recommendations and scrubbed out. The wound was then cleansed with the Pulsavac, and the Kerlix was dampened with the Vashe wound solution and the Kerlix was used to pack the wound, 2 Kerlix's were used for this reason. An ABD dressing was then placed over the wound. The patient tolerated the procedure well. Sponge, lap, and needle counts correct x2. The patient was taken to recovery room in stable condition. The patient received vancomycin on a scheduled basis just prior to the procedure. Job ID: [id number]
--- NOTE | 2019-05-04 23:19 | CON ---
DATE OF CONSULTATION: 05/04/2019 CONSULTING PHYSICIAN: Patria Iraheta MD REASON FOR CONSULTATION: Ildefonso's gangrene. HISTORY OF PRESENT ILLNESS: The patient is an obese 33-year-old female. She had presented to the hospital three days previously with evidence of necrotizing fasciitis of the left labia, mons, and extending down from the left perirectal space. She had undergone previous surgical drainage of this. Dr. Iraheta had returned the patient to the operating room today for further debridement and requested intraoperative consultation regarding surgical finding. The patient was under general anesthetic in dorsal lithotomy when I arrived. She has a large open wound involving the entire left labia majora extending well up on to the left side of the mons pubis and down the left perirectal space. When I entered the room, there is no foul smell. I scrubbed into the operation to examine the area along with Dr. Iraheta. It is recognized that there has been adequate debridement of all tissue. There is no evidence of necrotic or purulent tissue. There is no wheeler or devitalized tissue. There is a tract that extends up into the left perirectal space, but this has internal and several centimeters. It does not communicate with the rectum. ASSESSMENT: There has been adequate surgical debridement of this wound. There is nothing else to do for this currently other than wound care and antibiotics. It would be ideal of a wound VAC to be placed on this, however, limitations of tissue adjacent to the vagina to which the dressing could be sealed would probably limit the potential utility of a VAC dressing. Given the extent of this wound, therefore, this will require at the very least daily dressing changes by skilled wound care personnel. This is not a wound that is amenable to care by an unskilled family member. For now, I do not think this requires a colostomy to divert the fecal stream. Although, if there are wound healing problems, this is always an option. As there was no known need for other surgical intervention at this time, I will see her in future as needed but invited Dr. Iraheta to notify me if I may be of further assistance in any way. Job ID: [id number]
--- NOTE | 2019-05-04 23:46 | PDOC.HOSPP ---
- Subjective Encounter Date: 05/04/19 Encounter Time: 18:30 Subjective: Patient seen and examined for med mngt. Pain controlled. No fever. No new complaints. No overnight events - Objective Vital Signs & Weight: Vital Signs (12 hours) Temp Pulse Resp BP Pulse Ox 05/04/19 20:00 98 05/04/19 19:29 98.0 F 93 16 121/81 98 05/04/19 15:42 97.7 F 94 16 113/74 100 Weight Admit Weight 198 lb Weight 198 lb I&O: 05/03/19 05/04/19 05/05/19 06:59 06:59 06:59 Intake Total 4745 4175 1475 Output Total 3450 4075 2125 Balance 1295 100 -650 Result Diagrams: 05/04/19 05:28 05/04/19 05:28 Additional Labs: Accuchecks 05/04/19 05/04/19 05/04/19 20:51 15:49 04:27 POC Glucose 303 H 313 H 205 H Hospitalist ROS - Review of Systems Respiratory: denies: cough, dry, shortness of breath, hemoptysis, SOB with excertion, pleuritic pain, sputum, wheezing, other Cardiovascular: denies: chest pain, palpitations, orthopnea, paroxysmal noc. dyspnea, edema, light headedness, other - Medication Medications: Active Medications Generic Name Dose Route Start Last Admin Trade Name Freq PRN Reason Stop Dose Admin Hydrocodone Bitart/Acetaminophen 1 tab 05/01/19 20:37 05/04/19 02:49 [place] 5/325 PO 1 tab Q4H PRN Administration Moderate Pain (4-6) Bisacodyl 10 mg 05/01/19 20:37 05/02/19 16:38 Dulcolax PO 10 mg DAILYPRN PRN Administration Constipation Clindamycin Phosphate/Dextrose 50 mls @ 50 mls/hr 05/01/19 17:00 05/04/19 17: 35 900 mg/ Device IVPB 50 mls 0100,0900,1700 BRIT Administration Sodium Chloride 1,000 mls @ 125 mls/hr 05/01/19 20:45 05/04/19 20:30 Normal Saline 0.9% IV Not Given .Q8H BRIT Insulin Glargine 12 units/ 0.12 mls @ 0 mls/hr 05/03/19 21:00 05/04/19 20:33 Miscellaneous Medication SC 0.12 mls BID BRIT Administration As Directed Meropenem 1 gm/ Device 50 mls @ 100 mls/hr 05/03/19 22:00 05/04/19 20:33 IVPB 50 mls Q8HR BRIT Administration Vancomycin HCl 1.5 gm/ Device 300 mls @ 200 mls/hr 05/04/19 11:00 05/04/19 19 :00 IVPB 300 mls 0300,1100,1900 BRIT Administration Insulin Human Lispro 0 units 05/01/19 16:38 05/03/19 21:03 Humalog SC 3 unit .BEDTIME SLIDING SC PRN Administration Bedtime Correctional Scale Insulin Human Lispro 0 units 05/02/19 16:57 05/04/19 17:38 Humalog SC 8 unit .MODERATE SLIDING SC PRN Administration Moderate Correctional Scale Morphine Sulfate 4 mg 05/01/19 21:46 05/04/19 09:49 Morphine SLOW IVP 4 mg Q4H PRN Administration Severe Pain (7-10) Polyethylene Glycol 17 gm 05/03/19 17:30 05/04/19 15:12 Miralax PO 17 gm DAILYPRN PRN Administration Constipation Sodium Chloride 10 ml 05/03/19 09:00 05/04/19 20:33 Flush - Normal Saline IVF Not Given Q12HR BRIT - Exam General Appearance: NAD Neck: supple, no JVD Heart: RRR, no gallops Respiratory: no wheezes, no rales, no ronchi Gastrointestinal: soft, non-tender, non-distended, normal bowel sounds Hosp A/P - Plan DVT proph w/SCDs DM2 - uncontrolled Obesity BMI 32.9 Hypokalemia/Hyponatremia Sepsis due to necrotizing perineal infection PLAN: Cont Atbx per primary service Replace Potassium Change sliding scale to Q4h Cont current dose of Lantus 12 units BID Add Glipizide/Metformin Cont diabetic diet Cont other meds as above
[2019-05-05] MEDS: Vancomycin 1.5 GRAM/300 ML BAG 1.5 GM in Premix Bag 1 BAG IVPB SCH (02:04)
[2019-05-05] MEDS: Clindamycin/D5W 900 MG in Premix Bag 1 BAG IVPB SCH ×2 (02:04→08:15)
[2019-05-05] MEDS: Sodium Chloride 0.9% 1,000 ML IV SCH ×3 (02:12→20:44)
[2019-05-05] MEDS: MEROPENEM 1 GM/50 ML 1 GM in Premix Bag 1 BAG IVPB SCH (05:04)
[2019-05-05 06:18] LABS: Band 15 % (5-11); Eosinophils 4 % (0-10); Hemoglobin 8.8 g/dL (12.0-16.0); Lymphocytes 26 % (21-51); MDiff Complete? YES; Mean Corpuscular HGB CONC 34.2 g/dL (32.0-36.0); Mean Corpuscular Hemoglobin 27.6 pg (27.0-31.0); Mean Corpuscular Volume 80.8 fL (78.0-98.0); Mean Platelet Volume 10.5 fL (7.4-10.4); Metamyelocyte 1 % (0-0); Monocytes 4 % (0-10); Neutrophil 50 % (42-75); Platelet Count 204 thou/uL (130-400); Platelet Morphology Comment Appears Adequate; RBC Distribution Width 14.2 % (11.5-14.5); White Blood Cell (WBC) Count 6.7 thou/uL (4.8-10.8)
[2019-05-05 06:26] LABS: Anion Gap 9 mmol/L (10-20); BUN (Urea Nitrogen) 4 mg/dL (7.0-18.7); Calc. Creatinine Clearance 220 mL/min (70-130); Calcium 7.2 mg/dL (7.8-10.44); Carbon Dioxide 23 mmol/L (22-29); Chloride 107 mmol/L (98-107); Estimated GFR-MDRD Greater than 90; Glucose 226 mg/dL (70-105); Magnesium 1.9 mg/dL (1.6-2.6); Potassium 4.2 mmol/L (3.5-5.1); Sodium 135 mmol/L (136-145)
--- NOTE | 2019-05-05 07:45 | PDOC.EVN ---
Event Note - Event Note Event Note: HD #5 S: No complaints, minimal pain, no N/V, alvina reg diet. +mild constipation. O: VSSAF NAD RRR CTAB S/nt/nd, Vag- not examined, abd pad over wet to dry dressing. No e/c/c hgb 8.8, wbc 6.7, band 15%, glucose in 200s, chemistries otherwise normal A) 33yo with Ildefonso's gangrene, uncontrolled T2DM - POD4 and 1 from debridement and wash out, Dr Smith in OR yesterday and felt that all nonviable tissue was removed - Wound care to start BID wet to dry dressing changes with Vashe. Wound will teach to do dressing changes and pt can be set up with outpt wound therapy. Vac not an option at this time due to concern for the seal at the medial aspect of wound. Pt does not have funding so arranging home health will be difficult. Wound care # [id number] - On Clinda, Vanc, Merrem, Dr Davidson following. Cultures so far negative. Clinically condition is stable - Pain- stable on po meds - Acute blood loss anemia- s/p 1U PRBC, hgb stable at 8.8, MVI with iron - GI- surfak for constipation - T2DM- Sound following on Met/glipizide and lantus with SSI - Electrolyte abnormalities- improved - DVT ppx- SCD, ambulate - Pt needs to shower today - Cont inpt care.
[2019-05-05] MEDS: Saccharomyces boulardii 250 MG CAP PO SCH (08:14)
[2019-05-05] MEDS: Multivitamin W/ Minerals 1 TAB PO SCH (08:14)
[2019-05-05] MEDS: glipiZIDE 5 MG TAB PO SCH ×2 (08:14→16:41)
[2019-05-05] MEDS: Docusate Calcium (SURFAK) 240 MG CAP PO SCH ×2 (08:14→20:30)
[2019-05-05] MEDS: metFORMIN 500 MG TAB PO SCH ×2 (08:14→16:41)
--- NOTE | 2019-05-05 09:03 | PDOC.EVN ---
Event Note - Event Note Event Note: OBGYN organic extractions technician Note 05/05/[address] Iraheta on this patient. I have been updated. I have discussed the case with wound care on the phone this AM. They are OK with outpatient dressings and the has been taught by them on dressing care. I have just sent Dr Davidson (ID) a TigerText to see if outpatient oral ABX is an option to begin DC planning. I am awaiting his imput. She is currently on meropenem, vanc, and clinda.
[2019-05-05] MEDS: Insulin Glargine 12 UNITS in Pre-Filled Syringe SC SCH (09:55)
--- NOTE | 2019-05-05 11:06 | PRG ---
DATE OF SERVICE: 05/05/2019 SUBJECTIVE: The patient is still constipated, but she has not been eating much. No respiratory symptoms or chest pain. No abdominal pain. Just a sensation of distention. Actually, she has a Ruiz catheter still in place. New white cell count is at 6.7, hemoglobin 8, platelets 204. Creatinine 0.51. Cultures, we do not have any growth yet identified in samples except for many normal vaginal aster. The culture is still in progress, possible anaerobes present with isolation in progress. ASSESSMENT: Newly diagnosed type 2 diabetes with necrotizing fasciitis in left perineal area, status post surgical debridement with likely polymicrobial aster with a predominance of anaerobes. The wound is complex. The general surgeon has evaluated the patient and felt that it would be difficult for her to perform the wound packing herself and she most likely will require professional wound care management. It does not look like she is going to get a negative pressure dressing placed probably due to insurance issues and other documentation problems. In terms of antimicrobial therapy, we are basically targeting gram-negative rods including aerobes and anaerobes with combination of Flagyl and ciprofloxacin. The duration of therapy is probably around 2 to 3 weeks depending on the progress of the granulation tissue. Job ID: [id number]
[2019-05-05] MEDS: HumaLOG 300 UNITS/3 ML VIAL SC PRN ×2 (11:23→16:41)
[2019-05-05] MEDS ORDERED: Insulin Glargine 10 UNITS in Pre-Filled Syringe 1 EACH SC SCH (11:30)
[2019-05-05] MEDS: metroNIDAZOLE 500 MG TAB PO SCH ×2 (15:15→20:29)
--- NOTE | 2019-05-05 16:34 | PDOC.BPN ---
- Brief Progress Note Patient seen at bedside just now...doing well. Vitals reviewed: afebrile. Labs reviewed by me. I have discussed the case with case management, ID, and nursing. We are planning on DC in AM with assisted wound changes. She will have outpatient wound care weekly to twice a week for wet to drys, and sitz baths. She will continue with po Cipro and flagyl (RX given by me to director case). Suspect AM DC to home.
[2019-05-05] MEDS: Ciprofloxacin 500 MG TAB PO SCH (20:30)
[2019-05-05] MEDS ORDERED: FLU VACC QS2019-20(6MOS UP)/PF 60 MCG/0.5 ML SYRINGE IM ONE (21:00)
[2019-05-05] MEDS ORDERED: Insulin Glargine 20 UNITS in Pre-Filled Syringe 1 EACH SC SCH (21:00)
--- NOTE | 2019-05-05 23:41 | PDOC.HOSPP ---
- Subjective Encounter Date: 05/05/19 Encounter Time: 08:00 - Objective Vital Signs & Weight: Vital Signs (12 hours) Temp Pulse Resp BP Pulse Ox 05/05/19 20:36 98.4 F 103 H 16 121/83 95 05/05/19 15:20 98.5 F 106 H 16 112/79 98 05/05/19 11:48 98.5 F 97 14 101/68 98 Weight Admit Weight 198 lb Weight 198 lb I&O: 05/04/19 05/05/19 05/06/19 06:59 06:59 06:59 Intake Total 4179 4098 Output Total 8792 0036 7540 Balance 898 -610 -4184 Result Diagrams: 05/05/19 05:25 05/05/19 05:25 Additional Labs: Accuchecks 05/05/19 05/05/19 05/05/19 20:43 15:50 14:25 POC Glucose 137 H 192 H 203 H 05/05/19 05/05/19 11:06 05:29 POC Glucose 279 H 241 H Hospitalist ROS - Medication Medications: Active Medications Generic Name Dose Route Start Last Admin Trade Name Freq PRN Reason Stop Dose Admin Hydrocodone Bitart/Acetaminophen 1 tab 05/01/19 20:37 05/04/19 02:49 Bath 5/325 PO 1 tab Q4H PRN Administration Moderate Pain (4-6) Bisacodyl 10 mg 05/01/19 20:37 05/02/19 16:38 Dulcolax PO 10 mg DAILYPRN PRN Administration Constipation Ciprofloxacin 500 mg 05/05/19 20:00 05/05/19 20:30 Cipro PO 500 mg BID@0600,2000 BRIT Administration Docusate Calcium 240 mg 05/05/19 09:00 05/05/19 20:30 Surfak PO 240 mg BID BRIT Administration Glipizide 5 mg 05/05/19 07:30 05/05/19 16:41 Glucotrol PO 5 mg BID-AC BRIT Administration Sodium Chloride 1,000 mls @ 125 mls/hr 05/01/19 20:45 05/05/19 20:44 Normal Saline 0.9% IV Not Given .Q8H BRIT Insulin Glargine 20 units/ 0.2 mls @ 0 mls/hr 05/05/19 21:00 05/05/19 20:49 Miscellaneous Medication SC 0.2 mls HS BRIT Administration Insulin Human Lispro 0 units 05/01/19 16:38 05/03/19 21:03 Humalog SC 3 unit .BEDTIME SLIDING SC PRN Administration Bedtime Correctional Scale Insulin Human Lispro 0 units 05/02/19 16:57 05/05/19 16:41 Humalog SC 2 unit .MODERATE SLIDING SC PRN Administration Moderate Correctional Scale Iron/Minerals/Multivitamins 1 tab 05/05/19 09:00 05/05/19 08:14 Theragran M PO 1 tab DAILY BRIT Administration Metformin HCl 500 mg 05/05/19 08:00 05/05/19 16:41 Glucophage PO 500 mg BID-WM BRIT Administration Metronidazole 500 mg 05/05/19 15:00 05/05/19 20:29 Flagyl PO 500 mg TID BRIT Administration Morphine Sulfate 4 mg 05/01/19 21:46 05/04/19 09:49 Morphine SLOW IVP 4 mg Q4H PRN Administration Severe Pain (7-10) Polyethylene Glycol 17 gm 05/03/19 17:30 05/04/19 15:12 Miralax PO 17 gm DAILYPRN PRN Administration Constipation Saccharomyces Boulardii 250 mg 05/05/19 09:00 05/05/19 08:14 Florastor PO 250 mg DAILY BRIT Administration Sodium Chloride 10 ml 05/03/19 09:00 05/05/19 20:52 Flush - Normal Saline IVF Not Given Q12HR [facility] Hosp A/P - Plan DM2 - uncontrolled Obesity BMI 32.9 Hypokalemia/Hyponatremia Sepsis due to necrotizing perineal infection PLAN: Cont Atbx per primary service Replace Potassium Cont Q4 sliding scale Increase Lantus 20 units BID Cont Glipizide/Metformin Insulin injection teaching Cont diabetic diet Cont other meds as above
[2019-05-06] MEDS: Sodium Chloride 0.9% 1,000 ML IV SCH (05:31)
[2019-05-06 05:51] LABS: Anion Gap 10 mmol/L (10-20); BUN (Urea Nitrogen) 4 mg/dL (7.0-18.7); Calc. Creatinine Clearance 197 mL/min (70-130); Calcium 7.7 mg/dL (7.8-10.44); Carbon Dioxide 21 mmol/L (22-29); Chloride 108 mmol/L (98-107); Estimated GFR-MDRD Greater than 90; Glucose 138 mg/dL (70-105); Potassium 3.9 mmol/L (3.5-5.1); Sodium 135 mmol/L (136-145)
[2019-05-06 05:52] LABS: Band 7 % (5-11); Eosinophils 2 % (0-10); Hemoglobin 9.9 g/dL (12.0-16.0); Lymphocytes 26 % (21-51); MDiff Complete? YES; Mean Corpuscular Hemoglobin 27.7 pg (27.0-31.0); Mean Corpuscular Volume 81.5 fL (78.0-98.0); Mean Platelet Volume 10.2 fL (7.4-10.4); Monocytes 7 % (0-10); Neutrophil 57 % (42-75); Platelet Count 241 thou/uL (130-400); Reactive Lymphocytes 1 % (0-10); Red Blood Cell (RBC) Count 3.56 mill/uL (4.20-5.40); White Blood Cell (WBC) Count 7.3 thou/uL (4.8-10.8)
[2019-05-06] MEDS: Ciprofloxacin 500 MG TAB PO SCH (06:27)
[2019-05-06] MEDS: glipiZIDE 5 MG TAB PO SCH ×2 (06:27→16:33)
--- NOTE | 2019-05-06 06:49 | PDOC.EVN ---
Event Note - Event Note Event Note: Doing well. OK for DC as scheduled. Home with cipro and flagyl per ID (po) Follow up one week with wound care and OBGYN ([facility]). See dictation.
--- NOTE | 2019-05-06 07:25 | DIS ---
DATE OF ADMISSION: 05/01/2019 DATE OF DISCHARGE: 05/06/2019 ADMITTING DIAGNOSES: 1. Vulvar abscess/infection. 2. Ildefonso's gangrene of the vulva. PRINCIPAL PROCEDURES: 1. Vulvar debridement of necrotic-appearing lesion. 2. CT scan. SERVICES CONSULTED: General Surgery. HOSPITAL COURSE: In brief, this patient was admitted by other [facility]IST and Family Medicine physicians. I evaluated the patient first on 05/05/2019, and then okayed her discharge on 05/06/2019. In brief, this patient is a 33-year-old patient with known diabetes, who presented on 05/01/2019 with a diagnosis of possible early sepsis due to Ildefonso's gangrene. She was given broad-spectrum antibiotics. A CT scan was also done. Blood cultures were obtained. Hemoglobin A1c value was also obtained. Infectious Disease was also called (Dr. Davidson) for evaluation. On 05/01/2019, the patient underwent an operative debridement along with irrigation. This was done by Dr. Sarah Hidalgo and Dr. Kellen Tee. For full details, please turn to the dictation dated that date. Dr. Booker with General Surgery also evaluated the patient at that time. She is to continue her IV antibiotic therapy as recommended by Infectious Disease. On 05/04/2019, Dr. Patria Iraheta did another exam under anesthesia and surgical debridement and washout, per the operative report. For full details, please see the operative dictation dated that date. I evaluated the patient on 05/06/2019 after I first seen her on 05/05/2019. She was afebrile and normotensive. Laboratory data showed normal white blood cell count both on the and . Her initial white blood cell count was 9.9 on April 30. I evaluated the patient and discussed the case with Infectious Disease. Dr. Davidson felt that oral antibiotic therapy was appropriate for at least 2 weeks as an outpatient. I also discussed with Wound Care and after initial attempts at a wound VAC, it was felt that wet-to-dry dressings would be better based on the location of the wound and difficulty maintaining a proper seal. Blood culture showed no growth at 48 hours and the bacterial culture of the left labia simply showed many normal vaginal aster. The plan was to discharge the patient home on 05/06/2019 with followup in the next week with Wound Care and with [facility] [place]. Once again, clearance for discharge was done by Dr. Davidson and myself. Job ID: [id number]
[2019-05-06] MEDS ORDERED: Potassium Chloride 10 MEQ TAB PO SCH (08:00)
[2019-05-06] MEDS: Saccharomyces boulardii 250 MG CAP PO SCH (08:48)
[2019-05-06] MEDS: metFORMIN 500 MG TAB PO SCH ×2 (08:48→16:33)
[2019-05-06] MEDS: metroNIDAZOLE 500 MG TAB PO SCH ×2 (08:48→15:40)
[2019-05-06] MEDS: Multivitamin W/ Minerals 1 TAB PO SCH (08:48)
[2019-05-06] MEDS: Docusate Calcium (SURFAK) 240 MG CAP PO SCH (08:48)
[2019-05-06] MEDS ORDERED: Insulin Glargine 20 UNITS in Pre-Filled Syringe 1 EACH SC SCH (09:00)
[2019-05-06 11:11] VITALS: BP 111/78; TEMP 98.4
[2019-05-06] MEDS ORDERED: Sodium Chloride 0.9% 1,000 ML IV SCH (11:51)
[2019-05-06] MEDS: HYDROcodone/Acetaminophen 5/325 mg Tablet PO PRN (16:30)
[2019-05-06] MEDS: HumaLOG 300 UNITS/3 ML VIAL SC PRN (16:34)
--- NOTE | 2019-05-06 20:26 | PDOC.HOSPP ---
- Subjective Encounter Date: 05/06/19 Encounter Time: 07:30 Subjective: Patient seen and examined for med mngt. Pain controlled. No new complaints. No overnight events - Objective Vital Signs & Weight: Vital Signs (12 hours) Temp Pulse Resp BP Pulse Ox 05/06/19 11:10 98.4 F 112 H 16 111/78 98 Weight Admit Weight 198 lb Weight 198 lb I&O: 05/05/19 05/06/19 05/07/19 06:59 06:59 06:59 Intake Total 4095 Output Total 4810 5500 1500 Balance -780 -5500 -1500 Result Diagrams: 05/06/19 05:14 05/06/19 05:14 Additional Labs: Accuchecks 05/06/19 05/06/19 05/06/19 16:08 10:36 05:15 POC Glucose 237 H 151 H 133 H 05/06/19 05/05/19 00:08 20:43 POC Glucose 125 H 137 H Hospitalist ROS - Review of Systems Respiratory: denies: cough, dry, shortness of breath, hemoptysis, SOB with excertion, pleuritic pain, sputum, wheezing, other Cardiovascular: denies: chest pain, palpitations, orthopnea, paroxysmal noc. dyspnea, edema, light headedness, other - Exam General Appearance: NAD Neck: supple, no JVD Heart: no gallops Respiratory: no wheezes, no ronchi Gastrointestinal: non-tender, non-distended, normal bowel sounds Extremities: no cyanosis Psychiatric: normal affect, A&O x 3 Hosp A/P - Plan DVT proph w/SCDs DM2 - better controlled Sepsis due to necrotizing perineal infection Obesity BMI 32.9 Hypokalemia/Hyponatremia PLAN: Change Lantus to NPH due to cost Cont Glipizide/Metformin Patient was advised to monitor sugar 2-3 x day and maintain a log Cont Atbx per ID Wound care Cont other meds as above
--- NOTE | 2019-05-09 03:15 | PQF ---
SARAH Arreola [id number] CLINICAL DOCUMENTATION CLARIFICATION FORM: POST DISCHARGE Addendum to original discharge summary date: ____ Late entry note date: 05/13/19 DATE: 05/09/2019 ATTN: Sarah Hidalgo Please exercise your independent, professional judgment in responding to the clarification form. Clinical indicators are provided on the bottom of this form for your review Please check appropriate box(s): [ x ] Excisional Debridement: Depth / layer: (deepest layer of debridement): [ ] Skin [ x ] SubQ Tissue [ ] Fascia [ ] Muscle [ ] Tendon [ ] Bone [ ] Non-excisional Debridement: (Removal by flushing, brushing, chemical, or washing) Depth / layer: (deepest layer of debridement): [ ] Skin[ ] Subcutaneous [ ] Fascia [ ] Muscle [ ] Tendon [ ] Bone [ ] Incision and Drainage only (No Debridement): Depth:[ ] Skin [ ] Subcutaneous [ ] Fascia [ ] Muscle [ ] Tendon [ ] Bone [ ] Other procedure diagnosis [ ] Unable to determine For continuity of documentation, please document condition throughout progress notes and discharge summary. Thank You. CLINICAL INDICATORS - SIGNS / SYMPTOMS / LABS OP Note 04/30 "Incision and drainage with wound debridement" OP Note 04/30 "The necrotic tissue was sharply dissected and removed until viable tissue was noted" OP Note 04/30 "It was copiously irrigated and cautery was used for hemostasis" OP Note 04/30 "Findings:necrotizing fascitis" RISK FACTORS HP 04/30-DM HP 04/30-Sepsis HP 04/30-Ildefonso's gangrene OP Note 04/30-Necrotizing fascitis PN 05/04-Obesity TREATMENTS: Collected 04/30-CT of abdomen/pelvis HP 04/30-IVF OP Note 04/30-Incision and drainage with wound debridement MAR 04/30-Vancomycin 1.75gm IV APR 25-Maxipime 2gm IV APR 25-Clindamycin 900mg IV (This form is maintained as a part of the permanent medical record) 2014 [email or web address], [employer] All Rights Reserved [email or web address]
--- NOTE | 2019-05-09 03:20 | PQF ---
ISAEL Neely [id number] CLINICAL DOCUMENTATION CLARIFICATION FORM: POST DISCHARGE Addendum to original discharge summary date: ____ Late entry note date: __ DATE: 05/09/2019 ATTN: Isael Iraheta Please exercise your independent, professional judgment in responding to the clarification form. Clinical indicators are provided on the bottom of this form for your review Please check appropriate box(s): [ X ] Excisional Debridement: Depth / layer: (deepest layer of debridement): [ ] Skin[ X ] SubQ Tissue [ ] Fascia [ ] Muscle [ ] Tendon [ ] Bone [ ] Non-excisional Debridement: (Removal by flushing, brushing, chemical, or washing) Depth / layer: (deepest layer of debridement): [ ] Skin[ ] Subcutaneous [ ] Fascia [ ] Muscle [ ] Tendon [ ] Bone [ ] Other procedure diagnosis [ ] Unable to determine For continuity of documentation, please document condition throughout progress notes and discharge summary. Thank You. CLINICAL INDICATORS - SIGNS / SYMPTOMS / LABS OP Note 05/03 "surgical debridement and washout" OP Note 05/03 "the wound was then incised with an 11 blade" OP Note 05/03 "subcutaneous tissue was removed with the denis's scissors" OP Note 05/03 "There was a small amount of adipose that was removed" OP Note 05/03 "Findings:left sided vulvar and buttock wound measuring 19cm in length and 9cm in width" RISK FACTORS HP 04/30-DM HP 04/30-Sepsis HP 04/30-Ildefonso's gangrene OP Note 04/30-Necrotizing fascitis PN 05/04-Obesity TREATMENTS: Collected 04/30-CT of abdomen/pelvis HP 04/30-IVF OP Note 04/30-Incision and drainage with wound debridement APR 25-Vancomycin 1.75gm IV APR 25-Maxipime 2gm IV APR 25-Clindamycin 900mg IV OP Note 05/03-surgical debridement and washout (This form is maintained as a part of the permanent medical record) 2014 [employer], [employer]. All Rights Reserved [email or web address]
== END 2019-05-06 16:45 | disposition home or self-care (01) | DRG 853 ==
LOC: ERS 14:41 → SDC/OP 17:09 → SURG A 20:37
PROVIDERS: ADMIT Urology; ATTEND Urology
PROC: 3E02340 Introduction of Influenza Vaccine into Muscle, Percutaneous Approach (ICD-10-PCS; 2019-05-02)
PROC: 3E0234Z Introduction of Serum, Toxoid and Vaccine into Muscle, Percutaneous Approach (ICD-10-PCS; 2019-05-02)
PROC: 30233N1 Transfusion of Nonautologous Red Blood Cells into Peripheral Vein, Percutaneous Approach (ICD-10-PCS; principal; 2019-05-03)
PROC: 0JB90ZZ Excision of Buttock Subcutaneous Tissue and Fascia, Open Approach (ICD-10-PCS; 2019-05-04)
DX: A41.9 Sepsis, unspecified organism (principal); M72.6 Necrotizing fasciitis; E87.1 Hypo-osmolality and hyponatremia; D62 Acute posthemorrhagic anemia; Z23 Encounter for immunization; N76.89 Other specified inflammation of vagina and vulva; E11.65 Type 2 diabetes mellitus with hyperglycemia; I10 Essential (primary) hypertension; E78.5 Hyperlipidemia, unspecified; E87.6 Hypokalemia; E66.9 Obesity, unspecified; K59.00 Constipation, unspecified; Z98.51 Tubal ligation status; Z68.32 Body mass index [BMI] 32.0-32.9, adult
CPT/HCPCS: 36415; 36416; 36430; 74177; 80048; 80053; 80202; 83036; 83605; 83735; 84703; 85007; 85025; 85027; 86140; 86850; 86900; 86901; 87040; 87070; 87205; 88304; 88305; 90471; 90686; 90732; 93005; 96365; 96375; G0008; G0009; J0692; J1815; J2001; J2185; J2250; J2270; J2405; J2543; J2704; J3010; J3370; J3490; J7050; P9016; Q9967

== ENCOUNTER 2019-05-11 10:57 | Emergency (ER) | payer SELFPAY ==
[2019-05-11 12:17] LABS: #Eosinphils 0.1 thou/uL (0.0-0.7); #Lymphocytes 1.3 thou/uL (1.20-3.40); #Monocytes 0.4 thou/uL (0.11-0.59); #Neutrophils 5.1 thou/uL (1.40-6.50); %Basophils 0.3 % (0.0-1.0); %Eosinophils 1.3 % (0.0-10.0); %Lymphocytes 19.3 % (21.0-51.0); %Neutrophils 74.1 % (42.0-75.0); Hemoglobin 9.9 g/dL (12.0-16.0); Mean Corpuscular HGB CONC 32.5 g/dL (32.0-36.0); Mean Corpuscular Hemoglobin 26.9 pg (27.0-31.0); Mean Corpuscular Volume 82.9 fL (78.0-98.0); Mean Platelet Volume 10.9 fL (7.4-10.4); Platelet Count 249 thou/uL (130-400); RBC Distribution Width 14.9 % (11.5-14.5); Red Blood Cell (RBC) Count 3.68 mill/uL (4.20-5.40); White Blood Cell (WBC) Count 6.9 thou/uL (4.8-10.8)
[2019-05-11 12:42] LABS: ALT (SGPT) 13 U/L (8-55); AST (SGOT) 23 U/L (5-34); Albumin 3.3 g/dL (3.5-5.0); Alkaline Phosphatase 64 U/L (40-110); Anion Gap 15 mmol/L (10-20); BUN (Urea Nitrogen) 6 mg/dL (7.0-18.7); Bilirubin, Total 0.5 mg/dL (0.2-1.2); Calc. Creatinine Clearance 0 mL/min (70-130); Calcium 8.3 mg/dL (7.8-10.44); Carbon Dioxide 21 mmol/L (22-29); Chloride 103 mmol/L (98-107); Estimated GFR-MDRD Greater than 90; Globulin 3.1 g/dL (2.4-3.5); Glucose 188 mg/dL (70-105); Potassium 3.9 mmol/L (3.5-5.1); Protein, Total 6.4 g/dL (6.0-8.3); Sodium 135 mmol/L (136-145)
== END 2019-05-11 13:25 | disposition home or self-care (01) ==
LOC: ERS 10:57
DX: Z48.01 Encounter for change or removal of surgical wound dressing (principal); E11.9 Type 2 diabetes mellitus without complications
CPT/HCPCS: 36415; 80053; 83605; 85025; 99283